=== PATIENT | female | born 1980 | race Caucasian/White ===

== ENCOUNTER → 2020-08-27 07:46 | Day surgery (SDC) | payer OTHER, SELFPAY ==
--- NOTE | 2020-08-27 | CA_ITS ---
APPROVED REPORT EXAM: Comprehensive 2D, Doppler, and color-flow Echocardiogram Cashier Office: Irma Heard RT(R) Ht: 5 ft 5 in Wt: 220lbs BSA: 2.06 BP: 134/82 mmHg Indications: Palpitations, fatigue, STREET, obesity, family history of HD, asthma, near syncopal episodes frequently 2D Dimensions LVOT 1.74 cm (M/F) 1.5-2.5 M-Mode Dimensions RVDd 1.91 cm (0.9-2.6) LA Diam 3.30 cm (1.9-4.0) LVDd 4.24 cm (3.5-5.7) Ao Diam 2.05 cm (2.0-3.7) LVDs 3.14 cm (3.5-5.7) IVSd 1.16 cm (0.6-1.1) PWd 0.84 cm (0.6-1.1) EF (Teich) 51.40% FS 25.90% EDV (Teich) 80.40 mL ESV (Teich) 39.10 mL LV Diastology E Decel Time 150.00 (160-240 msec) E/A Ratio 0.9 MED E' 10.30 (< 7 cm/sec) E'/MED E' Ratio 10.87 (>14) LAT E' 11.60 (<10 cm/sec) E/LAT E' Ratio 9.66 (>14) Mitral Valve MV E Max Ted. 112.00 (40-130 cm/s) MV A Velocity 121.00 (40-130 cm/s) E/A Ratio 0.92 MV Decel. Time 150.00 (160-240 ms) MV PHT 44.00 ms Left Ventricle Left atrium is normal size, left ventricle is normal size, there is no concentric left ventricular hypertrophy, visually estimated ejection fraction of 55% with no regional wall motion abnormality, diastolic parameters are within normal range. Right Ventricle Right atrium and right ventricle are normal size and contractility. Aortic Valve Aortic valve is grossly normal, there is no aortic stenosis or aortic insufficiency. Mitral Valve Mitral valve is grossly normal, there is mild mitral regurgitation. Tricuspid Valve Tricuspid valve grossly normal, there is mild tricuspid regurgitation, tricuspid regurgitation jet velocity is inadequate for calculation of the right ventricular systolic pressure. Pulmonic Valve Pulmonic valve is poorly visualized. Great Vessels Aortic root is normal size. Pericardium No significant pericardial effusion noted. Conclusion 1. Normal left ventricular size, preserved left ventricular systolic function, visually estimated ejection fraction 55% with no regional wall motion abnormality, diastolic parameters are within normal range. 2. Mild mitral and tricuspid regurgitation. 3. No significant pericardial effusion noted. Electronically signed by : eH Mike, 08/27/2020 18:23:58
[2020-08-27 08:31] VITALS: BMI 36.6
--- NOTE | 2020-08-27 10:57 | HMH.TILT ---
Findings:: PROCEDURE: Upright Tilt Table Test REQUESTING PROVIDER: Hodan Montoya NP INDICATION: Recurrent episodes of near syncope PRE-TEST VS: HR 94 and NSR, BP 181/104, O2 Sats 98% HOME MEDS: Sertraline 100mg daily. No beta blockers. PROCEDURE SUMMARY: Patient was connected to heart monitor, blood pressure monitor and O2Sat monitor and pretest vital signs were obtained. She was then placed in the upright position at 85 degrees per protocol, were she remained for 45 minutes. While in the upright position she said that she felt mildly lightheaded on a couple of occasions but never felt close to loosing consciousness. Her heart rate and blood pressure remained stable with only mild variability throughout the test. Her maximum heart rate was 104 bpm and minimum heart rate was 93 bpm. She remained in sinus rhythm throughout with no ectopy recorded. Her maximum systolic blood pressure was 182, minimum systolic blood pressure was 164. Maximum diastolic blood pressure was 118, minimum diastolic blood pressure was 98. Oxygen saturation was in the high 90s throughout. COMPLICATIONS: None CONCLUSION: Negative upright TTT. Moderately high blood pressure that needs to be addressed.
== END ==
PROVIDERS: PCP Nurse Practitioner Family; Visit Provider Nurse Practitioner Family
DX: R55 Syncope and collapse (principal)
CPT/HCPCS: 93306; 93660

== ENCOUNTER → 2021-09-12 09:51 | Outpatient (CLI) | payer OTHER, SELFPAY ==
[2021-09-12 10:47] LABS: Basophils # 0.1 K/mm3 (0-0.2); Basophils % 0.8 % (0.1-2.0); Eosinophils # 0.5 K/mm3 (0.0-0.4); Eosinophils % 6.4 % (0.1-12.0); Hematocrit 40.1 % (37.0-47.0); Hemoglobin 12.9 g/dL (12.2-16.2); Lymphocytes % 26.5 % (10-50); Mean Corpuscular HGB Conc 32.2 g/dL (31.8-35.4); Mean Corpuscular Hemoglobin 25.6 pg (27.0-31.2); Mean Corpuscular Volume 79.6 fl (81-99); Mean Platelet Volume 8.2 fl (7.4-10.4); Monocytes # 0.4 K/mm3 (0.1-1.0); Monocytes % 5.3 % (1.7-9.3); Neutrophils # 4.7 K/mm3 (1.8-7.8); Neutrophils % 60.9 % (37.0-80.0); Platelet Count 344 K/mm3 (142-424); Red Blood Count 5.04 M/mm3 (4.20-5.40); Red Cell Distribution Width 15.8 % (11.5-17.5); White Blood Count 7.7 K/mm3 (4.8-10.8)
[2021-09-12 11:35] LABS: Chloride 103 mmol/L (98-107); Sodium 139 mmol/L (136-145)
[2021-09-12 11:38] LABS: Alanine Aminotransferase 27 U/L (12-78); Albumin Level 4.4 g/dl (3.5-5.0); Albumin/Globulin Ratio 1.5 (1.1-1.8); Alkaline Phosphatase 90 U/L (38-126); Aspartate Amino Transferase 29 U/L (14-36); Bilirubin,Total 0.3 mg/dl (0.2-1.3); Blood Urea Nitrogen 10 mg/dl (7-17); Carbon Dioxide 27 mmol/L (22.0-30.0); Estimated Glomerular Filt Rate 92 ml/min (>60); GFR (African American) 111 ML/MIN (>60); Total Protein,Serum 7.4 g/dl (6.3-8.2)
[2021-09-12 11:39] LABS: Calcium 9.4 mg/dl (8.4-10.2); Glucose 95 mg/dl (74-100)
[2021-09-12 11:44] LABS: C-Reactive Protein 10.3 mg/L (0-4)
[2021-09-12 11:52] LABS: Erythrocyte Sedimentation Rate 14 mm/hr (0-20)
[2021-09-12 12:09] LABS: Thyroid Stimulating Hormone 1.75 uIU/mL (0.465-4.68)
[2021-09-13 10:49] LABS: RA Latex Turbid. <10.0 IU/mL (0.0-13.9)
[2021-09-15 10:09] LABS: Lupus Reflex Interpretation Comment: (.); PTT-LA 38.1 sec (0.0-51.9); dRVVT 51.7 sec (0.0-47.0); dRVVT Confirm 1.4 ratio (0.8-1.2); dRVVT Mix 42.6 sec (0.0-40.4)
[2021-09-15 13:13] LABS: Anti-Centromere B Antibodies <0.2 AI (0.0-0.9); Anti-DNA (DS) Ab Qn 1 IU/mL (0-9); Anti-Jo-1 <0.2 AI (0.0-0.9); Anti-Smith Antibody <0.2 AI (0.0-0.9); Antichromatin Antibodies <0.2 AI (0.0-0.9); Antiscleroderma-70 Antibodies <0.2 AI (0.0-0.9); RNP Antibodies 0.2 AI (0.0-0.9); Sjogren's Anti-SS-A <0.2 AI (0.0-0.9); Sjogren's Anti-SS-B <0.2 AI (0.0-0.9)
[2021-09-15 23:12] LABS: Antinuclear Antibodies, IFA Positive (.)
== END ==
PROVIDERS: Visit Provider Nurse Practitioner Family
DX: M12.9 Arthropathy, unspecified (principal); R20.2 Paresthesia of skin; N96 Recurrent pregnancy loss
CPT/HCPCS: 36415; 80053; 84443; 85025; 85613; 85651; 86038; 86140; 86225; 86235; 86431

== ENCOUNTER → 2021-10-02 08:01 | Outpatient (CLI) | payer OTHER, SELFPAY ==
--- NOTE | 2021-10-02 08:06 | MR_ITS ---
PROCEDURE: MR HEAD/BRAIN WO/W CON CLINICAL INDICATION: OCULAR MIGRAINE COMPARISON: No exams were available for comparison TECHNIQUE: Routine multiplanar multi echo sequences are performed without and with gadolinium enhancement. FINDINGS: No midline shift, mass effect, intracranial hemorrhage, or hydrocephalus. The cerebellopontine angles, cerebellum, brainstem, and mid brain have an unremarkable appearance. Unremarkable white matter signal intensity. The corpus callosum, optic chiasm, and craniocervical junction have an unremarkable appearance. There is a partial empty sella. The infundibulum of the pituitary is slightly deviated toward the left. Arachnoid cyst of the sella would be included in the differential diagnosis. This is of questionable clinical significance. Please correlate with clinical parameters. Sagittal FLAIR and DIR images are obtained showing no abnormal white matter lesions. No enhancing lesions. No evidence of acute infarction. No mastoid effusion or sinus air-fluid level. IMPRESSION: 1. No acute intracranial findings. No abnormal white matter signal intensity. 2. Partial empty sella versus arachnoid cyst of the sella. Follow-up in 6 months may confirm short-term stability. Dictated by: Michael Rice MD 10/03/2021 10:47 Michael Rice MD in [place] 10/03/2021 10:47
== END ==
LOC: RAD 08:01
PROVIDERS: PCP Nurse Practitioner Family; Visit Provider Nurse Practitioner Family
DX: G43.109 Migraine with aura, not intractable, without status migrainosus (principal)
CPT/HCPCS: 70553; A9576

== ENCOUNTER 2022-04-11 09:13 | Emergency (ER) | payer BC, SELFPAY ==
[2022-04-11] VITALS (7 sets, daily range): BP systolic 142–188; BP diastolic 80–115; PULSE 85–112; RESP 16–17; TEMP 36.9; O2SAT 97–99; BMI 34.9
--- NOTE | 2022-04-11 09:39 | HMH.EDGENADL ---
ED Disposition Clinical Impression: Acute calculous cholecystitis Disposition: Home, Self-Care Condition on Discharge: Good Instructions: Fat-Restricted Diet, DI for Gallstones, DI for Cholecystitis Additional Instructions: Cipro and Flagyl as prescribed. Percocet and ibuprofen as needed for pain. Zofran as needed for nausea. Low-fat diet. Surgical office will call you on Wednesday morning to arrange appointment. Return to the emergency department if worsening pain, vomiting, fever, or jaundice. Additional instructions for CONTROLLED SUBSTANCES: You have been prescribed a medication that is a controlled substance. Controlled substances include pain medications known as opiates and sedative nerve medications known as benzodiazepines. Tramadol, fioricet, and gabapentin are also controlled substances. Some common opiates include: Codeine (such as Tylenol #3) Hydrocodone (Vicodin, Lortab, Lorcet, [place]) Oxycodone (Percocet, Percodan, Oxycodone, Oxy IR) Some common benzodiazepines include: Diazepam (Valium) Lorazepam (Ativan) Alprazolam (Xanax) Clonazepam (Klonopin) Oxazepam (Serax) All of these controlled substances are highly addictive and frequently abused. Misuse can and frequently does lead to addiction as well as overdose and . Medication should be stored in a locked cabinet or other secure storage unit. Do not store the medication in a motor vehicle. Short term supplies, 3 days or less, are prescribed because of the highly addictive nature of the medication. Any of the controlled substance medication NOT taken should be disposed of properly and NOT SAVED. The recommended method of disposing of unused medications is: Place the medicines in a sealable plastic bag. If the medicine is a solid, crush it or add water to dissolve it. Add something undesirable (cat litter, coffee grounds, etc.) Dispose of sealed bag in household trash Do not flush or pour unused medicines down a sink or drain. Controlled substances should not be shared, given away or sold. Because of the addictive nature and frequent abuse, these medications are sometimes stolen. These medications should be kept in a safe place where they cannot be stolen. Do not keep them in your car or purse. Lost or stolen prescriptions for controlled substances WILL NOT BE REFILLED in this emergency department, regardless of whether a police report was filed. Prescriptions: Oxycodone HCl/Acetaminophen [Percocet 5/325mg tablet] 1 tab PO Q6HP PRN #10 tab PRN Reason: Moderate To Severe Pain Transmission Status: Received by [facility] Ibuprofen [Ibuprofen 800mg Tablet] 800 mg PO Q8HP PRN #15 tab PRN Reason: Moderate Pain Transmission Status: Received by [facility] Ciprofloxacin HCl [Cipro 500mg Tab] 500 mg PO BID #20 tab Transmission Status: Received by [facility] metroNIDAZOLE [Metronidazole] 500 mg PO TID #30 tab Transmission Status: Received by [facility] Ondansetron [Zofran 4mg ODT] 4 mg PO TIDP PRN #10 tab PRN Reason: Nausea And Vomiting Transmission Status: Received by [facility] Referrals: Hodan Montoya APRN [Primary Care Provider] - Michael Smith MD [Staff Physician] - - Critical Care Critical Care Time: No Attestation: On 04/11/22, the high probability of a clinically significant, sudden or life threatening deterioration of the following system(s) required my full and direct attention, intervention and personal management. The time I documented below is in addition to time spent performing reported procedures but includes the following listed in this critical care notation. Medical Decision Making - Marek Inquiry Pt receiving controlled substance: Yes Marek was queried for this patient: Yes Risks and benefits of using a controlled substance: were not discussed with pt by me Vital Signs: 04/11/22 09:35 04/11/22 10:07 04/11/22 10:30 Temper
--- NOTE | 2022-04-11 09:48 | CT_ITS ---
PROCEDURE INFORMATION: Exam: CT Abdomen And Pelvis Without Contrast Exam date and time: 04/11/2022 10:13 AM Age: 41 years old Clinical indication: Abdominal pain; Epigastric; Additional info: Upper abdo pain to back TECHNIQUE: Imaging protocol: Computed tomography of the abdomen and pelvis without contrast. Radiation optimization: All CT scans at this facility use at least one of these dose optimization techniques: automated exposure control; mA and/or kV adjustment per patient size (includes targeted exams where dose is matched to clinical indication); or iterative reconstruction. COMPARISON: No relevant prior studies available. FINDINGS: Detailed evaluation of the abdominal and pelvic viscera is somewhat limited in the absence of intravenous contrast. Lungs: No acute airspace or pleural disease. Liver: Fatty infiltration of the liver. Gallbladder and bile ducts: Dilated gallbladder with cholelithiasis and infiltration of pericholecystic fat, consistent with cholecystitis in the appropriate clinical setting. Pancreas: No pancreatic mass or ductal dilatation. Spleen: Enlarged spleen measuring 13.7 cm in length. Adrenal glands: Unremarkable adrenals. Kidneys and ureters: 5 mm nodular hypodensity in the lateral right kidney suggesting a small cyst. No hydronephrosis. Stomach and bowel: Questionable wall thickening in the nondistended stomach. No significant small bowel dilatation. Diverticula, without pericolonic inflammation. Appendix: No acute appendicitis. Intraperitoneal space: No dependent free fluid in the pelvis. Vasculature: Normal caliber of the abdominal aorta. Lymph nodes: Subcentimeter lymph nodes. Urinary bladder: Nondistended bladder. Reproductive: Enlarged uterus, which can be better evaluated with ultrasound if clinically indicated. Bones/joints: Pectus excavatum deformity of the anterior chest wall. Lumbar facet arthropathy. Soft tissues: Small fat containing umbilical and inguinal hernias. IMPRESSION: 1. Dilated gallbladder with cholelithiasis and infiltration of pericholecystic fat, consistent with cholecystitis in the appropriate clinical setting. 2. Enlarged uterus, which can be better evaluated with ultrasound if clinically indicated. 3. Additional findings as described above. COMMENTS: Consistent with the [employer]'s Incidental Findings Committee white paper (J Am Sunita Radiol 2018): Any incidental renal lesion less than 1 cm or classified as too small to characterize, or any incidental cystic renal lesion characterized as simple-appearing, is likely benign. No follow-up imaging is recommended for these lesions per consensus recommendations based on imaging criteria.
--- NOTE | 2022-04-11 10:03 | PC.NURSE ---
pt refusing po contrast. notified
[2022-04-11 10:08] LABS: Basophils # 0.1 K/mm3 (0-0.2); Basophils % 1.3 % (0.1-2.0); Eosinophils # 0.1 K/mm3 (0.0-0.4); Eosinophils % 1.1 % (0.1-12.0); Hematocrit 38.4 % (37.0-47.0); Hemoglobin 12.5 g/dL (12.2-16.2); Lymphocytes # 1.5 K/mm3 (0.7-4.5); Lymphocytes % 14.2 % (10-50); Mean Corpuscular HGB Conc 32.6 g/dL (31.8-35.4); Mean Corpuscular Hemoglobin 23.9 pg (27.0-31.2); Mean Corpuscular Volume 73.4 fl (81-99); Mean Platelet Volume 7.5 fl (7.4-10.4); Monocytes # 0.4 K/mm3 (0.1-1.0); Monocytes % 3.4 % (1.7-9.3); Neutrophils # 8.7 K/mm3 (1.8-7.8); Platelet Count 404 K/mm3 (142-424); Red Blood Count 5.22 M/mm3 (4.20-5.40); Red Cell Distribution Width 17.1 % (11.5-17.5); White Blood Count 10.9 K/mm3 (4.8-10.8)
--- NOTE | 2022-04-11 10:11 | PC.NURSE ---
pt to radiology via stretcher
[2022-04-11 10:13] LABS: Chloride 105 mmol/L (98-107); Potassium 3.6 mmoL/L (3.5-5.1); Sodium 138 mmol/L (136-145)
[2022-04-11 10:14] LABS: Microscopic, Urine URINE MICROSCOPIC (MICROSCOPIC)
[2022-04-11 10:16] LABS: Appearance,Urine CLEAR (Clear); Bilirubin,Urine Negative (Negative); Blood, Urine TRACE-I (Negative); Color,Urine YELLOW (Yellow); Glucose,Urine (UA) Negative (Negative); Ketones,Urine TRACE (Negative); Leukocyte Esterase,Urine Negative (Negative); Nitrate,Urine Negative (Negative); Protein,Urine Negative (Negative); Specific Gravity, Urine 1.025 (1.005-1.030); Urobilinogen,Urine 0.2 EU/dl (0.2)
[2022-04-11 10:16] LABS: Alanine Aminotransferase 29 U/L (12-78); Albumin Level 4.6 g/dl (3.5-5.0); Albumin/Globulin Ratio 1.4 (1.1-1.8); Alkaline Phosphatase 95 U/L (38-126); Anion Gap 12.6 mEq/L (5-15); Aspartate Amino Transferase 32 U/L (14-36); Bilirubin,Total 0.5 mg/dl (0.2-1.3); Blood Urea Nitrogen 8 mg/dl (7-17); Calcium 9.4 mg/dl (8.4-10.2); Carbon Dioxide 24 mmol/L (22.0-30.0); Creatinine Clearance Estimated 157 mL/min (50-200); Estimated Glomerular Filt Rate 92 ml/min (>60); GFR (African American) 111 ML/MIN (>60); Globulin 3.4 g/dL (1.3-3.2); Glucose 129 mg/dl (74-100)
[2022-04-11 10:18] LABS: Urine Pregnancy, HCG Qual. Negative (Negative)
--- NOTE | 2022-04-11 10:20 | PC.NURSE ---
pt returned from radiology
--- NOTE | 2022-04-11 10:24 | ECG_ITS ---
APPROVED REPORT Exam: Resting ECG HR:87 bpm ECG Measurements Heart Rate 87 AXES PA 189 P 42 QRSd 90 QRS -10 QT 376 T 3 QTc 420 Conclusion SINUS RHYTHM VOLTAGE CRITERIA FOR LVH [MEETS CRITERIA IN ONE OF: R(aVL), S(V1), R(V5), R(V5/V6)+S(V1)] POSSIBLE ANTERIOR MYOCARDIAL INFARCTION , PROBABLY OLD [30 ms Q WAVE IN V3/V4, OR R < 0.2 mV IN V4] ABNORMAL ECG UNCONFIRMED REPORT Electronically signed by : Mikel Crowley MD 04/11/2022 20:15:35
[2022-04-11 10:29] LABS: Bacteria,Urine Trace /lpf; Mucus,Urine 2+ /lpf; RBC,Urine Occasional #/hpf (0-3); WBC,Urine Occasional #/hpf (0-3)
--- NOTE | 2022-04-11 10:47 | PC.NURSE ---
at bedside. pt states she is still in pain after first dose of morphine. additional pain medication order obtained per MD. no other needs at this time.
--- NOTE | 2022-04-11 10:48 | PC.NURSE ---
patient updated we are awaiting CT report
[2022-04-11 11:22] LABS: Lipase 77 U/L (23-300)
[2022-04-11 11:37] LABS: Troponin I < 0.01 ng/ml (0.00-0.034)
--- NOTE | 2022-04-11 11:42 | PC.NURSE ---
Dr Wray asked to page surgeon concrete hopper operator.
--- NOTE | 2022-04-11 11:43 | PC.NURSE ---
Dr Wray talking to Dr Zavala
== END 2022-04-11 12:07 | disposition home or self-care (01) ==
PROVIDERS: Emergency Provider Emergency Medicine; PCP Nurse Practitioner Family
DX: K76.0 Fatty (change of) liver, not elsewhere classified; K57.92 Diverticulitis of intestine, part unspecified, without perforation or abscess without bleeding; M54.9 Dorsalgia, unspecified; N28.82 Megaloureter; D64.9 Anemia, unspecified; R11.0 Nausea; I10 Essential (primary) hypertension; M19.90 Unspecified osteoarthritis, unspecified site; K40.90 Unilateral inguinal hernia, without obstruction or gangrene, not specified as recurrent; F41.9 Anxiety disorder, unspecified; Z88.8 Allergy status to other drugs, medicaments and biological substances; Z87.891 Personal history of nicotine dependence
CPT/HCPCS: 74176; 80053; 81001; 81025; 83690; 84484; 85025; 93005; 96361; 96374; 96375; 96376; 99285; J1335; J2405

== ENCOUNTER → 2022-04-15 07:49 | Outpatient (CLI) | payer BC, SELFPAY ==
--- NOTE | 2022-04-15 07:50 | US_ITS ---
FINAL REPORT CLINICAL HISTORY: RUQ pain FINDINGS: RIGHT UPPER QUADRANT ULTRASOUND Sonographic images of the right upper quadrant were obtained. The pancreas is partially obscured.The liver has an unremarkable appearance. There is a 1.9 cm gallstone in the gallbladder. The common duct measures 2 mm, within normal limits. Limited images of the right kidney are normal. IMPRESSION: Gallstone. Reviewed, Interpreted and Dictated by Vitaliy Lemon III, MD Transcribed by Linda Anand Authenticated and [facility]
== END ==
PROVIDERS: PCP Nurse Practitioner Family; Visit Provider Surgery
DX: K80.00 Calculus of gallbladder with acute cholecystitis without obstruction (principal)
CPT/HCPCS: 76705

== ENCOUNTER → 2022-04-15 08:34 | Outpatient (CLI) | payer BC, SELFPAY | PROVIDERS: PCP Nurse Practitioner Family; Visit Provider Surgery | DX: Z01.812 Encounter for preprocedural laboratory examination (principal); Z20.822 Contact with and (suspected) exposure to COVID-19; K80.00 Calculus of gallbladder with acute cholecystitis without obstruction | CPT/HCPCS: C9803; U0003; U0005 ==

== ENCOUNTER 2022-04-17 12:12 | Day surgery (SDC) | payer BC, SELFPAY ==
[2022-04-17] VITALS (13 sets, daily range): BP systolic 99–163; BP diastolic 59–99; PULSE 75–101; RESP 16–18; TEMP 36.4–43; O2SAT 94–100; BMI 34.9
--- NOTE | 2022-04-17 16:31 | HMH.ANESCL ---
[facility] Anesthesia Checklist - Patient Identification Patient Identification: Arm Band, Verbal (Name & ) - Structural Data Admitted From: Home Planned Operative Procedure/s: Laparascopic Cholecystectomy Consent for Planned Operative Procedure(s) Verified: Yes Verified Documents: Surgical Consent - NPO Status Verified Time NPO: 00:00 - Chart Verification Results Verified: CBC, BMP, HCG - Additional verifications Anesthesia Reactions: No Hx Blood Transfusions: No Blood Transfusion Reaction: No - Airway Assessment C-Spine Mobility Assessed: Yes TMJ Mobility Assessed: Yes Dentition: Good Dentition - Neurological Assessment Level of Consciousness: Awake, Alert, Appropriate - Anesthesia Plan Anesthesia Risk discussed: Yes ASA Class: II Anesthesia Type: General [facility] History I have reviewed the patient's past medical history: Yes Medical History: Denies:: Cancer, Diabetes Mellitus Type 1, Diabetes Mellitus Type 2, Internal Pacemaker, MRSA, Seizures *Have you ever received a pneumonia vaccine?: No *Have you received a flu vaccine this season?: Yes Other Medical History: Reports: Anemia, Arthritis. Denies: Blood Transfusion Reaction Anesthesia experience/problems:: none Other Surgeries: Yes: , Dilation and Curettage. No: Pacemaker Amputation: No Fractures: No - *Social History Last grade of school completed: Advanced degree Smoking Status: Former smoker Alcohol Intake: never Alcohol Intake Frequency:: 0-2 drinks per day Substance Use Type: denies use *Occupational Status:: employed Housing: house Household Members: spouse *Travel in the last 8 weeks: None Family Hx:: Cancer
--- NOTE | 2022-04-17 17:16 | HMH.OPNOTE ---
Date of procedure: 04/17/22 Pre-op Diagnosis:: Symptomatic gallstones Post-op Diagnosis:: Same. Cholecystitis. Procedure performed:: Laparoscopic cholecystectomy Surgeon:: Vitaliy Snider MD STATE APPELLATE CLERK:: Other Anesthesia: ELADIO Estimated blood loss (mL): 20 Clinical Note:: Patient is a pleasant 41-year-old female referred by the emergency department for gallbladder. She has a history of previous symptoms possibly consistent with biliary colic. However these have been minor and mostly self-limited. She states that last week she had developed acute epigastric pain radiating across her upper abdomen. This transiently resolved. However it then recurred and persisted. Is quite severe. She then presented to the emergency department a few days ago on 04/11/2021. Her work-up included CT scan which revealed findings of dilated gallbladder with cholelithiasis and infiltration of pericholecystic fat consistent with cholecystitis. Patient was managed as an outpatient. She was however given antibiotics consisting of ciprofloxacin and metronidazole and also given antiemetics and narcotics. She states that she has been dependent on the narcotic pain medication in the sense that if there is delayed time dosing this she has progressive recurrent ongoing symptoms. Her primary care provider is Cecilia Montoya The options were discussed with the patient. Plan was made to proceed with cholecystectomy. She did undergo dedicated gallbladder ultrasound which was read as gallstone . Operative findings:: He has some of a fatty liver. She had findings of hydropic gallbladder. There were at least couple of moderate-sized stones with stone impacted in the neck of the gallbladder. There were omental adhesions to the gallbladder. Gallbladder wall was thickened. The cystic artery was somewhat anterior to the cystic duct. Operative note:: Patient was taken to the operating room. She was given preoperative intravenous antibiotics. In the operating room she was placed in a supine position. General anesthesia was induced. Abdomen was prepped and draped in the standard surgical fashion. Subumbilical skin incision was made and while performing abdominal wall lift Veress needle was inserted. CO2 pneumoperitoneum was achieved to 15 mmHg. 11 mm optical trocar was inserted at the umbilicus. Intraperitoneal contents were visualized. She was positioned in reverse Trendelenburg left side down. A couple of 5 mm trochars were inserted in the right upper abdomen. 10 mm trocar was inserted in the epigastrium. Gallbladder was identified and somewhat obscured with omental adhesions. There were some fatty infiltration of the liver. Inflammatory adhesions were taken down. Gallbladder was rather tense. Using the laparoscopic needle aspirator the gallbladder was aspirated. There was tense mucus filling the gallbladder consistent with hydropic gallbladder. Once the gallbladder was decompressed it was grasped retracted anteriorly and superiorly over the dome of the liver. Remaining omental adhesions were taken down. There is stone tightly impacted in the neck of the gallbladder. Gallbladder was retracted anterior laterally. Blunt dissection was carried out at the neck of the gallbladder. Ultimately cystic duct and cystic artery were identified. Cystic artery was anterior to the cystic duct. Cystic duct was isolated, multiply clipped, and divided. Cystic artery was then coagulated with PEEWEE ultrasonic harmonic mohit and divided. The gallbladder was dissected free from the liver in a retrograde fashion using Magnetic ultrasonic robotic mohit. Gallbladder was placed within an Endo Catch retrieval device removed from the peritoneal cavity via the umbilical trocar site which required some extension of the fascial incision for delivery. Gallbladder fossa was then irrigated and aspirated until clear. There was good hemostasis. Some use of electrocautery was used judiciously on the l
--- NOTE | 2022-04-17 17:25 | HMH.ANESI ---
[facility] Anesthesia Record Part I Intake, IV Amount: 1,200 Estimated blood loss (mL): 5 Urine output (mL): 0 Blood Products used (#): none Blood Pressure: 99/59 SaO2: 94 Pulse Rate: 83 Respiratory Rate: 16 Temperature: 98.9 F Patient is:: Drowsy Stable to PACU at:: 17:20
[2022-04-20 08:08] VITALS: BP 133/81; PULSE 75; TEMP 36.4
--- NOTE | 2022-04-20 08:08 | HMH.ANESII ---
[facility] Anesthesia Record Part II Discharge Time: 17:50 Destination: [facility] PACU nurse assessment reviewed?: Yes Patient Condition:: Good Anesthesia Complications:: None Swallowing reflex intact?: Yes Cyanosis?: No Blood Pressure: 133/81 Pulse Rate: 75 Temperature: 97.5 F Mental Status: Alert & Oriented Pain level:: 0 Nausea and/or vomitting:: None Intake, IV Amount: 1,200
== END 2022-04-17 19:20 | disposition home or self-care (01) ==
LOC: OR 12:14
PROVIDERS: PCP Nurse Practitioner Family; Visit Provider Surgery
PROC: 0FT44ZZ Resection of Gallbladder, Percutaneous Endoscopic Approach (ICD-10-PCS; CPT 47562; principal; 2022-04-17 14:15)
DX: K76.0 Fatty (change of) liver, not elsewhere classified; K80.00 Calculus of gallbladder with acute cholecystitis without obstruction
CPT/HCPCS: 47562; 96374; J2405; J2710

== ENCOUNTER 2024-02-26 07:59 | Outpatient (CLI) | payer BC, SELFPAY ==
--- NOTE | 2024-02-26 08:05 | MR_ITS ---
FINAL REPORT TECHNIQUE: Multiplanar MR, without and with gadolinium enhancement CLINICAL HISTORY: ABNORMAL MRI COMPARISON: Report available 10/02/2021 FINDINGS: Diffusion sequences show no signal abnormality to indicate acute infarct. No mass, hemorrhage or edema is seen. Ventricles are normal. Major vascular flow voids are intact. There is a thin rim of pituitary tissue in the peripheral pituitary fossa consistent with an empty sella. Following contrast administration, no mass or abnormal enhancement is seen. IMPRESSION: Thin rim of pituitary tissue in the peripheral pituitary fossa consistent with an empty sella. Otherwise unremarkable MRI of the head with and without contrast. Reviewed, Interpreted and Dictated by Beverly Davey MD Transcribed by Paris Woods Authenticated and . [facility]
[2024-02-26 09:06] LABS: Blood Urea Nitrogen 12 mg/dl (7-17); Estimated Glomerular Filt Rate 91 ml/min (>60); GFR (African American) 110 ML/MIN (>60)
[2024-02-26] MEDS: GADOTERIDOL INJ 17ML SYRINGE 19 ML IV (10:27)
[2024-02-26] MEDS: SODIUM CHLORIDE 0.9% 10ML SYR (RAD ONLY) 10 ML IV (10:27)
== END 2024-02-26 23:59 | disposition home or self-care (01) ==
LOC: RAD 08:00
PROVIDERS: Visit Provider Nurse Practitioner Family
DX: R20.2 Paresthesia of skin (principal); R93.0 Abnormal findings on diagnostic imaging of skull and head, not elsewhere classified
CPT/HCPCS: 36415; 70553; 82565; 84520; A9576

== ENCOUNTER 2025-05-03 15:13 | Outpatient (CLI) | payer BC, SELFPAY ==
--- OUTSIDE RECORDS SUMMARY | 2015-02-07 06:50 | XMS_ITS | Continuity of Care Document ---
Author Organization [facility] Address [address] [place] [id number] Phone Care Team Providers Care [employer] Teacher Name Role Phone MD JOSE, CRISTINO Unavailable Unavailable Advance Directives Directive Yes / No Effective Date File Name No Information Encounters Encounter Description Practice Location Reason(s) For Visit Diagnoses Date Provider Providers Copied on Encounter [facility], [address] [place] [address], [id number], tel:[phone] [facility] No Information MD CRISTINO GARCIA. [address] [place] [address], [id number], . tel:[phone] Referring Provider: Pia [id number], [place], [address]. Family History Family Member Type Diagnosis Age At Onset No Information Payers Payer name Insurance type Covered green party ID Authoriza tion(s) No Information Social History Type Description Quantity Date Captured Comments Sex Female Smoking Status No Information Chief Complaint And Reason For Visit No Information Reason For Referral Reason For Referral No Information History Of Present Illness Encounter Date Complaint History Of Prese nt Illness No Information Functional Status Date Functional Assessmen t No Information Instructions Date Instruction Additional Infor mation No Information Assessments Type Assessment Date No Information Patient Care Teams Name Effective Dates (start - stop) Status Members No Information
--- NOTE | 2025-05-03 15:15 | MM_ITS ---
PROCEDURE INFORMATION: Exam: MG Bilateral Screening 3D Mammography Exam date and time: 05/03/2025 3:20 PM Age: 44 years old Clinical indication: Screening examination TECHNIQUE: Imaging protocol: Bilateral Screening tomosynthesis and 2D mammography including computer-aided detection (CAD) when performed. COMPARISON: No relevant prior studies available. FINDINGS: MAMMOGRAPHY: Breast composition: There are scattered areas of fibroglandular density. Mass: None. Architectural distortion: None. Calcifications: No suspicious calcifications. Asymmetric density: None. Skin thickening: None. Axillary adenopathy: None. IMPRESSION: No mammographic evidence of malignancy. Annual screening is recommended unless otherwise clinically indicated. ASSESSMENT: BI-RADS Category 1: Negative.
--- OUTSIDE RECORDS SUMMARY | 2025-05-03 15:15 | XMS_ITS | Encounter Summary ---
Author Organization [facility] Address [address] [place] [address] Care Team Providers Care Press Operator [employer] Name Role Phone Hodan Montoya DIRECTOR OF SPORTS MEDICINE Primary Care Provider [phone]- [phone] Reason for Referral * Consultation (Routine) - Closed Specialty Diagnoses / Procedures Referred By Mack oh Referred To Contact Rheumatology Diagnoses Pain in joint, multiple sites Hodan Montoya, DIRECTOR OF SPORTS MEDICINE [address] [address] Phone: tel: fax: Referral ID Status Reason Start Date Expiration Date V isits Requested Visits Authorized [id number] Closed Specialty Services Required 03/01/2024 08/31/2025 1 1 Encounter Details Date Type Department Care Team (Late st Contact Info) Description 03/01/2024 Community Orders Community Practice [address] [place] [address] Hodan Montoya, DIRECTOR OF SPORTS MEDICINE [address] [id number] Pain in joint, multiple sites (Primary Dx) Social History Tobacco Use Types Packs/Day Years Used Date Smoking Tobacco: Never Assessed Comments Unknown Sex and Gender Information Value Date Recorded Sex Assigned at Female 03/29/2024 12:05 PM EDT Legal Sex Female 8:06 PM EDT Gender Identity Female 03/29/2024 12:05 PM EDT Sexual Orientation Straight 03/29/2024 12 :05 PM EDT documented as of this encounter Plan of Treatment Scheduled Referrals Name Type Priority Associated Diagnoses Order Schedule Ambulatory referral to Rheumatology Outpatient Referral Routine Pain in joint, multiple sites Expected: 03/01/2024 (Approximate), Expires: 09/01/2025 documented as of this encounter Visit Diagnoses Diagnosis Pain in joint, multiple sites- Primary documented in this encounter Care Teams Press Operator [employer] Blocks Relationship Specialty Start Date End Date Hodan Montoya APRN [address] [place] [address] PCP - General 04/03/24 documented as of this encounter
--- OUTSIDE RECORDS SUMMARY | 2025-05-03 15:15 | XMS_ITS | Clinical Summary ---
Author Organization [facility] Address [address] [place] [address] Care Team Providers Care Souvenir Assembler Name Role Phone Hodan Montoya DONNY Primary Care Provider [phone]- [phone] Allergies Active Allergy Reactions Criticality Noted Date Comments Gluten Meal Diarrhea Low 05/07/2022 Wheat Diarrhea,Nausea Low 11/01/1982 Medications lamoTRIgine (LaMICtal) 25 MG tablet Take 2 tablets (50 mg) by mouth 1 (one) time each day. 03/22/2024 Active lisinopril-hydr oCHLOROthiazide 20-25 MG tablet Take 1 tablet by mouth 1 (one) time each day. 03/22/2024 Active sertraline (Zoloft) 100 MG tablet Take 1 tablet (100 mg) by mouth 1 (one) time each day. 11/01/2017 Active ferrous sulfate 325 (65 Fe) MG tablet Take 1 tablet (325 mg) by mouth 1 (one) time each day with breakfast. Active Multiple Vitamin (multivitamin) capsule Take 1 capsule by mouth 1 (one) time each day. Active Active Problems Problem Noted Date Diagnosed Date Positional lightheadedness 04/03/2024 Joint pain 04/03/2024 Fatigue 04/03/2024 Acute calculous cholecystitis 04/03/2024 Immunizations Immunization Administration Dates Next Due Influenza, high-dose, quadrivalent 09/11/2021 Influenza, recombinant, quad rivalent, injectable, preservative free 08/15/2020 Family History Medical History Relation Name Comments Asthma Brother Zach Pond Obesity Father's Brother Richard PondJr. Vision loss Maternal Grandmother Debi Briceno Cancer Mother Anitra Pond Depression Mother Anitra Pond Heart disease Paternal Grandfather Richard Pond, Sr. Stroke Paternal Grandfather Richard Pond, Sr. Arthritis Paternal Grandmother Nini Pond Asthma Sister Kat Davenport Jose Depression Sister Kat Davenport Jose Miscarriages / Stillbirths Sister Kat Davenport [facility] Relation Name Status Comments Brother Zach Pond Father's Brother Richard PondJr. Maternal Grandmother Debi Briceno Mother Anitra Pond Paternal Grandfather Richard Pond, Sr. Paternal Grandmother Nini Pond Sister Kat Davenport Jose Social History Tobacco Use Types Packs/Day Years Used Date Smoking Tobacco: Never Smokeless Tobacco: Never Tobacco Cessation:Counseling Given: Not Answered Alcohol Use Standard Drinks/Week Comments Yes 14 (1 standard drink = 0.6 oz pu re alcohol) PHQ-2 Answer Date Recorded Patient Health Questionnaire-2 Score 0 04/03/2024 Comments Unknown Sex and Gender Information Value Date Recorded Sex Assigned at Female 03/29/2024 12:05 PM EDT Legal Sex Female 8:06 PM EDT Gender Identity Female 03/29/2024 12:05 PM EDT Sexual Orientation Straight 03/29/2024 12 :05 PM EDT Last Filed Vital Signs Vital Sign Reading Time Taken Comments Blood Pressure 138/92 04/03/2024 11:51 AM EDT Pulse 100 04/03/2024 10:40 AM EDT Temperature 37.4 C (99.4 F) 04/03/2024 10:40 AM EDT Respiratory Rate - - Oxygen Saturation 98% 04/03/2024 10: 40 AM EDT Inhaled Oxygen Concentration - - Weight 99.7 kg (219 lb 12.8 oz) 08/08/2024 1:26 PM EDT Height 165.1 cm (5' 5 ) 04/03/2024 10:4 0 AM EDT Body Mass Index 36.58 04/03/2024 10:40 AM EDT Plan of Treatment Health Maintenance Due Date Last Done Comments [facility]-HIV Screening 1979 [facility]-Hepatitis C Screening 1979 [facility]-/Child/Adol SDOH Screenings 1979 HPV Vaccines (1 - 3-dose series) 1994 [facility]- SDOH Screenings 1997 [facility]-Adult SDOH Screenings 1997 [facility]-DTaP,Tdap,and Td Vaccine s (1 - Tdap) 1998 [facility]-Hepatitis B Vaccines (1 of 3 - 19+ 3-dose series) 1998 [facility]-Pap Smear 2000 [facility]-Cervical Cancer Screening 2009 [facility]-HPV/Cotest 2009 CT Colonography 2024 Colonoscopy 2024 FIT-DNA 2024 FIT 2024 FOBT 2024 Sigmoidoscopy 2024 [facility]-Colorectal Cancer Screening 2024 [id number] Vaccine (2023- season) 2024 02/17/2022, 02/21/2021, 01/31/2021 [facility]-Depression Screening 04/03/2025 04/03/2024 [facility]-Influenza Vaccine (#1) 07/02/202509/11, 08/15/2020 [facility]-Zoster Vaccines (1 of 2) 2029 [facility]-Obesity Intervention Completed 04/03/2024 [facility]-HIB Vaccines Aged Out No longer e ligible based on patient's age to complete this topic [facility]-Hepatitis A Vaccines Aged Out No longer eligible based on patient's age to complete this topic [facility]-IPV Vaccines Aged Out No longer e ligible based on patient's age to complete this topic [facility]-Pneumococcal Vaccine: Pediatrics (0 to 5 Years) and At-Risk Patients (6 to 49 Years) Aged Out No longer eligible b ased on patient's age to complete this topic [facility]-Rotavirus Vaccines Aged Out No lo nger eligible based on patient's age to complete this topic Insurance Care Teams Souvenir Assembler Relationship Specialty Start Date End Date Hodan Montoya APRN [address] [facility] [address] [place] [address] PCP - General 04/03/24
== END 2025-05-03 23:59 | disposition home or self-care (01) ==
LOC: RAD 15:13
PROVIDERS: PCP Nurse Practitioner Family; Visit Provider Nurse Practitioner Family
DX: Z12.31 Encounter for screening mammogram for malignant neoplasm of breast (principal); R92.323 Mammographic fibroglandular density, bilateral breasts
CPT/HCPCS: 77063; 77067